=== PATIENT | female | born 1945 | race Caucasian/White ===

== ENCOUNTER 2018-05-26 05:30 | Inpatient (IN) | payer OTHER, BC ==
[~2018-05-26] VITALS: Ht 165.1 cm; Wt 59.0 kg
[~2018-05-26 05:30] MED LIST: ASPIR 8181 MG PO; CARVEDILOL3.125 MG PO; CELEBREX 200 M200 M1 PO; CRESTOR5 MG PO; KLOR-CON 1010 MEQ PO; NEXIUM20 M1 PO; NORVASC5 M1 PO
[2018-05-26 10:32] VITALS: BP 112/74
[2018-05-26 15:40] VITALS: BP 137/79
[2018-05-26 16:16] VITALS: BP 126/67
[2018-05-26 17:08] VITALS: BP 113/59
--- NOTE | 2018-05-26 17:57 | NUR ---
received pt approx 1515. A/O. RESTING IN BED. PAIN MANAGED BY MEDS ORDERED. AQUACEL DRESSING IN PLACE. ICER PACKS PROVIDED. VOIDS PER BEDPAN. TOELRATING DIET. WILL CONT. TO MONITOR.
[2018-05-26 21:06] VITALS: BP 111/72
--- NOTE | 2018-05-27 05:48 | NUR ---
POST OP R HIP. AQUACEL DRSG IN PLACE. PT USED BEDPAN THRO THE NOC, VOIDING OKAY.SCDS IN PLACE. PAIN WELL CONTROLLED WITH PERCOCET. AFEBRILE.ENC TO COUGH, DEEP BREATH AND USE I/S WHILE AWAKE. ICE MARK TO R HIP. NEUROVASCULAR CHECKS TO RLE INTACT.
--- NOTE | 2018-05-27 06:23 | O ---
[address] [address] OPERATIVE REPORT Name: KRISTEN RASMUSSEN Room #: 421-P [facility]..#: [id number] Admission: 05/26/18 ������������������ Attend Phys: Hector Najera MD Discharge: ������������������ Date of : 43 Report #: [id number] THIS REPORT FOR: //name// CC: Hector COELHO Physician staff DATE OF SERVICE: 05/26/2018 SERVICE: Orthopedics. FACILITY: [facility]. SURGEON: Hector Najera M.D. HAT STOCK LAMINATING MACHINE OPERATOR: Aminata Rivas NP. INDICATION FOR HAT STOCK LAMINATING MACHINE OPERATOR: Retraction, extremity positioning and assisting with the repair as well as suture management. PREOPERATIVE DIAGNOSES: 1. Chronic right hip pain. 2. Chronic right trochanteric bursitis. 3. Right abductor tendon insertional tear. POSTOPERATIVE DIAGNOSES: 1. Chronic right hip pain. 2. Chronic right trochanteric bursitis. 3. Right abductor tendon insertional tear. PROCEDURE: Open right hip abductor tendon repair with trochanteric bursectomy. COMPLICATIONS: None. DRAINS: None. SPECIMENS: None. ANESTHESIA: General. FINDINGS: 1. Approximately 40 mL of fluid in the trochanteric bursa, which was evacuated and cultured. 2. Chronic-appearing high-grade abductor tendon tear repaired with Hafsa labral tape and ReelX anchor x 2. [address] [address] OPERATIVE REPORT Name: KRISTEN RASMUSSEN Room #: 421-P [facility]#: [id number] Admission: 05/26/18 ������������������ Attend Phys: Hector Najera MD Discharge: ������������������ Date of : 43 Report #: [id number] HISTORY AND INDICATIONS: The patient is a 72-year-old female with a long-standing history of chronic lateral right hip pain for quite some time, including extensive physical therapy modalities, soft tissue management, rest, activity modification, oral medications and injections, all without sufficient relief. We obtained an MRI, which showed a significant tear of the abductor tendon at the insertion as well as trochanteric bursitis. Risks, benefits, alternatives and indications of surgery discussed with her in detail. Risks include but not limited to pain, bleeding, infection, injury to nerves or blood vessels, persistent pain despite surgical intervention, failure of any repairs, progression of any pre-existing degenerative disease as well as complications related to anesthesia, such as stroke, heart attack, pulmonary complications, thromboembolic disease and . Despite these risks, she wished to proceed. PROCEDURE IN DETAIL: After the right leg was correctly identified in the preoperative holding area as the operative extremity, the patient was taken to the operating room, where general anesthesia was induced without complication. She was turned into the lateral decubitus position with the right side up, left side down and was padded appropriately. Prophylactic antibiotics were administered at appropriate time. Right leg was then prepped and draped in a standard sterile fashion. Timeout procedure was performed. A 3.5-inch incision was made in a longitudinal fashion over the abductor insertion in the greater trochanter. Full-thickness skin flaps were developed. The superficial fascia and gluteus niki were then incised in line with the fibers. At this point, the trochanteric bursal space was entered and there was seen to be a significant amount of sterile-appearing fluid that egressed and was suctioned out of the hip. This did not track down to the joint and was contained within the trochanteric bursal plain alone. I did take cultures for aerobic, anaerobic and fungal due to the presence of the large amount of fluid volume. There was no gross purulence. A trochanteric bursectomy was then performed sharply and hemostasis was achieved. The abductor tendon insertion could be visualized, where there was chronic as well as degenerative tissue and chronic-appearing tear with a bald-exposed trochanter. The trochanteric bone was then abraded for a fresh bleeding surface to enhance healing and then 2 Hafsa labral tape sutures were placed with the tendon in a running locking fashion on the top of the trochanter and then down the gluteus minimus with a running locking suture technique. A good secure fixation was achieved within the muscle and musculotendinous junction and then the sutures were placed into the adjustable tension Ackerly ReelX anchors with a double plain configuration. Good secure repair was noted, with excellent advancement and compression of the tissues against the trochanter. The wound was copiously irrigated and the fascial plane was closed over a gram of vancomycin powder with 0 Vicryl suture in fxwane-pa-ofdst fashion. The fat layer was closed with 2-0 and the skin was closed with 2-0, followed by running subcuticular 3-0 Monocryl as well as Dermabond. Sterile dressing was applied. The patient was awakened from [address] [address] OPERATIVE REPORT Name: KRISTEN RASMUSSEN Room #: 421-P [facility] Hernesto M.R.#: [id number] Admission: 05/26/18 ������������������ Attend Phys: Hector Najera MD Discharge: ������������������ Date of : 43 Report #: [id number] anesthesia and taken to the recovery room. There were no complications and all counts were correct. ��������������������������������������������� <ELECTRONICALLY SIGNED> ���������������������������������������� By: Hector Najera MD ��������������������������������������������� 05/27/18 [id number] Hector Najera MD /nt
[2018-05-27 07:08] VITALS: BP 92/51
--- NOTE | 2018-05-27 08:42 | NUR ---
PT A&OX4, HAS NOT BEEN OUT OF BED SINCE SURGERY, WT BEARING OF 30# ON RIGHT. VOIDING PER BEDPAN. TOLERATING PO WELL. MEDICATED APPROX. 0730, READY FOR PT. WILL CONT TO MONITOR.
--- NOTE | 2018-05-27 10:52 | NUR ---
PT ADMITTED RELATED TO RIGHT HIP TENDON REPAIR. CM REVIEWED CHART AND SPOKE WITH CARE TEAM. CM MET WITH PT AND SPOUSE AT BEDSIDE THIS DAY. PT IS A&O X4. CM ROLE INTRODUCED. PT INDICATED SHE LIVES IN A HOUSE WITH HER SPOUSE WITH 2 STEPS TO ENTER AND NO STEPS INSIDE. PT INDICATED SHE HAS A FWW AND A BRACE FOR USE UPON DC. PT INDICATED SHE HADN'T SPOKEN WITH BALTA KAY ABOUT OP PT UPON DC BUT THAT SHE ANTICIPATES DOING SO AT HER FOLLOW UP APPOINTMENT ON 06/10. PT PLANS TO RETURN HOME ONCE MEDICALLY STABLE. CM TO FOLLOW INDICATED WITH DC PLANNING.
--- NOTE | 2018-05-27 15:18 | NUR ---
PT HAS BEEN NAUSEATED SINCE THIS AM. ZOFRAN ORDERED AND GIVEN STILL REMAIN NAUSEATED. PT UNABLE TO WORK WITH PT AND RECOMMENDS PT TO STAY ANOTHER NIGHT.
[2018-05-27 15:41] VITALS: BP 109/47
[2018-05-27 20:27] VITALS: BP 112/53
--- NOTE | 2018-05-28 02:32 | NUR ---
PT DENIES ANY NAUSEA OR VOMITING. R HIP DRSG INTACT. ICE MARK IN PLACE. PERCOCET GIVEN.PT USING BEDPAN FOR VOIDING PURPOSES. NO FURHER CONCERNS.
[2018-05-28 04:10] VITALS: BP 122/68
[2018-05-28 08:00] VITALS: BP 111/57
[2018-05-28 08:46] VITALS: BP 111/57
[2018-05-28 12:45] VITALS: BP 114/72
[2018-05-28 12:46] VITALS: BP 111/85
[2018-05-28 15:20] VITALS: BP 111/57
== END 2018-05-28 18:56 | disposition home or self-care (01) | DRG 502 ==
LOC: OR 05:30 → TBA 05:31 → OR 12:38 → 4E 15:30 → OR 15:31 → 4E 15:31
PROVIDERS: ADMIT Orthopaedic Surgery Sports Medicine
PROC: 0MBL0ZZ Excision of Right Hip Bursa and Ligament, Open Approach (ICD-10-PCS; principal; 2018-05-26)
PROC: 0LMJ0ZZ Reattachment of Right Hip Tendon, Open Approach (ICD-10-PCS; principal; 2018-05-26)
DX: S76.011A Strain of muscle, fascia and tendon of right hip, initial encounter (principal); M70.61 Trochanteric bursitis, right hip; Y93.9 Activity, unspecified; G89.29 Other chronic pain; M25.551 Pain in right hip; Z88.1 Allergy status to other antibiotic agents; X58.XXXA Exposure to other specified factors, initial encounter; Y93.89 Activity, other specified; Y92.89 Other specified places as the place of occurrence of the external cause; Y99.8 Other external cause status
CPT/HCPCS: 10084; 10783; 50010; 50101; 50382; 50414; 52256; 53078; 54118; 55430; 56526; 56527; 56528; 57103; 62110; 62900; 70005